=== PATIENT | male | born 1970 | race Caucasian/White ===

== ENCOUNTER 2022-03-30 00:04 | Day surgery (SDC) | payer OTHER, SELFPAY ==
[2022-03-16 09:41] VITALS: BMI 18.6
[2022-03-30 07:33] VITALS: BP 121/81; PULSE 96; RESP 18; TEMP 36.6; O2SAT 99
[2022-03-30] MEDS: LACTATED RINGERS 1,000 ML 150 ML IV CONT (07:41)
--- NOTE | 2022-03-30 08:00 | P.PNAN_ITS ---
Anes - Initial Pre Proc Eval Procedure: Operation Date: 03/30/22 08:30 Proposed Procedures p Screening Colonoscopy - Jason Islas MD Date/Time: 03/30/22 08:00 Surgeon: Jason Islas MD Pre Op Diagnosis: neoplasm screening Patient Data Age: 51 Gender: M Height: 1.78 m Weight: 101.2 kg Last Vital Signs Temp 36.6 C 03/30/22 07:33 Pulse 96 03/30/22 07:33 Resp 18 03/30/22 07:33 BP 121/81 03/30/22 07:33 Pulse Ox 99 03/30/22 07:33 O2 Del Method Room Air 03/30/22 07:33 Allergies Allergy/AdvReac Type Severity Reaction Status Date / Time No Known Allergies Allergy Verified 03/30/22 07:30 Home Medications Medication Instructions Recorded Confirmed Type duloxetine 60 mg capsule,delayed 60 mg PO DAILY 03/16/22 03/16/22 History release losartan 100 mg tablet 100 mg PO DAILY 03/16/22 03/16/22 History montelukast 10 mg tablet 10 mg PO DAILY 03/16/22 03/16/22 History pantoprazole 40 mg tablet,delayed 40 mg PO DAILY 03/16/22 03/16/22 History release Patient hx anesthesia problems: none Family hx anesthesia problems: none Results Review: All pre-operative results and documents have been reviewed as part of the pre- operative evaluation. [facility] Past Medical History Medical History Anxiety GERD (gastroesophageal reflux disease) Hypertension VIC (obstructive sleep apnea) Social History Social History Smoking packs per day: 0.5 Smoking cigarettes per day: 10.0 Years smoked: 10 Smoking pack-years: 5.00 Smoking status: Current every day smoker Tobacco type: cigarettes Alcohol intake: current Alcohol use details: socially Substance use type: does not use Living arrangements: with family Spiritual care concerns: No Anes - Eval Final PreProcedure Day of Procedure 03/30/22 08:00 Patient weight: obese Heart: regular rate and rhythm Lungs: decreased breath sounds Airway: Mallampati scale class II Neurological: alert and oriented Last oral intake: >/= 8 hours ASA classification: III Emergent: no Anesthetic plan: proceed Anesthesia type and monitoring: general GIVS and standard monitoring Results Review: All pre-operative results and documents have been reviewed as part of the pre- operative evaluation. Informed Consent: The patient's anesthetic plan and its attendant risks and benefits were discusse d with the patient/family/POA. Questions were solicited and answers provided to the satisfaction of the patient/family/POA.
--- NOTE | 2022-03-30 08:17 | PM.IMHP ---
H&P: HPI History of Present Illness Date/Time: 03/30/22 08:17 Chief Complaint: Neoplasia screening. Narrative: This is a 51-year-old white male patient presents for screening colonoscopy. Patient's current weight appetite and bowel movements are normal. He denies abdominal pain. He has had no bleeding. Family history is significant that his father had colon polyps. Patient presents today for screening colonoscopy. Review of Systems Review of Systems: Review of systems noncontributory. COUNT INCLUDES THE [facility] Past Medical History Medical History Anxiety GERD (gastroesophageal reflux disease) Hypertension VIC (obstructive sleep apnea) Social History Social History Smoking packs per day: 0.5 Smoking cigarettes per day: 10.0 Years smoked: 10 Smoking pack-years: 5.00 Smoking status: Current every day smoker Tobacco type: cigarettes Alcohol intake: current Alcohol use details: socially Substance use type: does not use Living arrangements: with family Spiritual care concerns: No Meds Home Medications and Allergies Home Medications Medication Instructions Recorded Confirmed Type duloxetine 60 mg capsule,delayed 60 mg PO DAILY 03/16/22 03/16/22 History release losartan 100 mg tablet 100 mg PO DAILY 03/16/22 03/16/22 History montelukast 10 mg tablet 10 mg PO DAILY 03/16/22 03/16/22 History pantoprazole 40 mg tablet,delayed 40 mg PO DAILY 03/16/22 03/16/22 History release Allergies Allergy/AdvReac Type Severity Reaction Status Date / Time No Known Allergies Allergy Verified 03/30/22 07:30 Vital Signs Vital Signs - 24 hr 03/30/22 07:33 Temperature 97.9 F Pulse Rate 96 Respiratory Rate 18 Blood Pressure 121/81 Pulse Oximetry 99 Oxygen Delivery Room Air Exam Narrative: Physical exam reveals patient to be alert. Vital signs stable. HEENT exam is unremarkable. Patient is anicteric. Lungs are clear to auscultation and percussion. Heart is without murmur or extra sounds. Abdomen bowel sounds present soft nontender with no organomegaly. Digital external rectal exam is normal. Assessment and Plan Assessment and plan (1) Family history of colonic polyps: Code(s): Z83.71 - Family history of colonic polyps Status: Acute Assessment and Plan: Patient's father had colon polyps. Patient presents today for neoplasia screening. Follow-up should be considered 5-7 year intervals in the future. Further recommendations will be given after endoscopy.
[2022-03-30 08:50] VITALS: BP 108/65; PULSE 89; RESP 17; O2SAT 96
[2022-03-30 09:00] VITALS: BP 105/68; PULSE 78; RESP 16; O2SAT 97
[2022-03-30 09:10] VITALS: BP 107/73; PULSE 76; RESP 17; O2SAT 98
[2022-03-30 09:20] VITALS: BP 111/79; PULSE 72; RESP 20; O2SAT 99
== END 2022-03-30 09:22 | disposition home or self-care (01) ==
PROVIDERS: PCP Internal Medicine; Visit Provider Internal Medicine Gastroenterology
PROC: 0DJD8ZZ Inspection of Lower Intestinal Tract, Via Natural or Artificial Opening Endoscopic (ICD-10-PCS; CPT 45378; principal; 2022-03-30 08:30)
DX: Z12.11 Encounter for screening for malignant neoplasm of colon (principal); D12.5 Benign neoplasm of sigmoid colon; K63.5 Polyp of colon; K64.8 Other hemorrhoids; Z83.71 Family history of colonic polyps; F41.9 Anxiety disorder, unspecified; K21.9 Gastro-esophageal reflux disease without esophagitis; I10 Essential (primary) hypertension; F17.210 Nicotine dependence, cigarettes, uncomplicated; E66.9 Obesity, unspecified; Z68.32 Body mass index [BMI] 32.0-32.9, adult
CPT/HCPCS: 45385; 88305; J2704; J7120